=== PATIENT | male | born 1995 | race Caucasian/White ===

== ENCOUNTER 2025-07-22 09:07 | Emergency (ER) | payer OTHER, SELFPAY ==
[2025-07-22 09:08] VITALS: BP 154/98
--- NOTE | 2025-07-22 10:18 | ED.GENMED ---
History of Present Illness
General
Chief Complaint: Dizziness
Source: patient
Exam Limitations: none
Time Seen by Provider: 07/22/25 10:03
Nursing documentation reviewed up to this point in time: agreed with
History of Present Illness
History of Present Illness:
30-year-old male present to the emergency department today after being sent in by urgent care for elevated blood pressure in the 190s systolic. He claims that he woke up feeling very stressed. He claims that occasionally he will get panic attacks
does not take any medications for these. These typically will improve on their own after a few hours. He went to work and still felt 'off' and was sent to the urgent care. There his blood pressure was elevated and they sent him immediately to the
ER. The blood pressure is 190 systolic. He claims his symptoms have improved. Denies any specific chest pain shortness of breath nausea vomiting. He claims that panic attacks are somewhat frequent for him he does not follow-up with anybody
particularly for this.
Past History
Past History
ED Past Medical History: Psychiatric (ADD)
ED Past Surgical History: Other (Bilateral myringotomy tubes as child)
Social History
Tobacco: Smoker (vapor cigs)
Alcohol: Occasional
Drug: None
Personal: Single
Living: with family
Employment: Student
Family History
Family History: Other (Noncontributory)
Review of Systems
Review of Systems
Allergies reviewed?: Yes
All Other Systems: ROS reviewed and negative except as documented in HPI and ROS
Phy Exam
Physical Exam
Physical Exam:
GENERAL: Alert , in no apparent distress
EYE: pupils equal and reactive
NECK: Supple, no significant adenopathy.
ENT: o/p clr, mmm.
CARDIAC: Regular rate and rhythm .
LUNGS: Clear breath sounds bilaterally, no acute respiratory distress, no wheezes/rales/rhonchi
ABDOMEN: Soft, without focal tenderness, no r/g, no cvat
NEUROLOGICAL: Alert and oriented, no focal neuro deficits
SKIN: Warm and dry, skin intact.
MUSCULOSKELETAL: No edema, well perfused.
PSYCH: Normal and appropriate interaction.
Course
Orders/Labs/Results
Orders:
Orders
07/22/25 09:13
Electrocardiogram (*1) Urgent
Reason for Study: Chest Pain
EKG- Treatment ONCE
Vital Signs
Initial and Last Documented VS:
Initial Vital Signs
Temp Pulse Resp BP Pulse Ox
97.7 F 86 20 154/98 98
07/22/25 09:08 07/22/25 09:08 07/22/25 09:08 07/22/25 09:08 07/22/25 09:08
Last Documented Vital Signs
Temp Pulse Resp BP Pulse Ox
97.7 F 86 20 154/98 98
07/22/25 09:08 07/22/25 09:08 07/22/25 09:08 07/22/25 09:08 07/22/25 09:08
MDM/Problems Addressed
MDM/Problems Addressed:
30-year-old male presenting to the emergency department today with concerns of elevated blood pressure at urgent care. Has a self-described panic attack this morning was sent from work to the urgent care blood pressure in the 190s and sent
immediately to the ER. Here blood pressure in the 150s over 90s. He claims that he is feeling somewhat stressed on arrival but now feels much better. Asymptomatic at this point. Denies any specific palpitations chest pain shortness of breath
nausea vomiting. No history of heart disease or risk factors for this. It was offered to get some basic labs for further assessment here but concerning is asymptomatic and blood pressure is improving these would likely be very low yield. He
claims that he prefer to follow-up closely with his primary care doctor. He will check his blood pressure at home when he feels better. I felt this was reasonable. EKG did not show any emergent findings. Patient denies any thoughts of harming
himself or others. Patient stable for discharge at this time.
*Pulse Oximetry
SaO2: 98
Oxygen Mode of Delivery: Room air
Patient hypoxic: no (98)
*Critical Care Note
Total Time (30-74mins, 75-104mins- exclusive of procedures): Not Applicable
ED Attending Note
-
Portions of this chart may have been created with voice recognition software.� Occasional wrong word or��sound alike� substitutions may have occurred due to the inherent limitations of voice recognition software.
Discharge Plan
Departure
Patient Disposition: Home (Routine Discharge)
Date of Disposition: 07/22/25
Time of Disposition: 10:21
Patient with high blood pressure during this ER visit?: Yes
Condition: Good
Covid-19: Not Applicable
Discharge Problem:
High blood pressure
Instructions: BLOOD PRESSURE
Prescriptions:
No Action
methylphenidate HCl 36 MG tablet extended release 24hr
36 mg PO DAILY
melatonin-pyridoxine HCl (B6) 1 EACH tablet
1 ea PO HS
amoxicillin [Amoxil] 875 MG tablet
875 mg PO BID Qty: 10 0RF
docusate sodium [Colace] 100 MG capsule
100 mg PO BID Qty: 30 0RF
Stand Alone Forms: Return to Work
Activity Restrictions/Additional Instructions:
You came to the emergency department today with concerns of elevated blood pressure from urgent care. Here the blood pressure was improving. Please keep an eye on this at home and otherwise follow-up closely with your primary care doctor. Return
for any worsening, new or concerning symptoms.
Interventions
Interventions:
*Risk Screen - Suicide Last Done: 07/22/25 09:08
*General Assessment Last Done: 07/22/25 09:08
*Neglect/Abuse Screening Last Done: 07/22/25 09:08
Discharge Date and Time
Print Language: ETHIOPIAN
[2025-07-22 10:20] VITALS: BMI 31.5
[2025-07-22 10:25] VITALS: BP 137/81
== END 2025-07-22 10:41 | disposition home or self-care (01) ==
LOC: EMR 09:07
PROVIDERS: EMERGENCY PHYSICIAN Emergency Medicine; FAMILY PHYSICIAN Family Medicine
DX: R03.0 Elevated blood-pressure reading, without diagnosis of hypertension (principal); F17.290 Nicotine dependence, other tobacco product, uncomplicated
CPT/HCPCS: 99283; 93005

== ENCOUNTER 2025-08-11 09:41 | Emergency (ER) | payer OTHER, SELFPAY ==
[2025-08-11 09:43] VITALS: BP 157/106
--- NOTE | 2025-08-11 10:20 | ED.GENMED ---
History of Present Illness
General
Chief Complaint: Chest Pain
Time Seen by Provider: 08/11/25 10:18
Nursing documentation reviewed up to this point in time: agreed with
History of Present Illness
History of Present Illness:
30 year old male presents to the ED for reevaluation of chest pressure that has been occurring intermittently since he was seen in this department 07/22/2025. Patient reports that the feeling of chest pressure on his left chest has been present
persistently since yesterday afternoon. He sometimes feels hot and cold. He denies cough or cold symptoms. He reports feeling fatigued but states he has been sleeping well. He occasionally feels very weak and lightheaded as though he is going to
faint. He states that he went to work this morning and felt that his legs were very wobbly prompting him to speak with his employer. He was then referred to the ER for further evaluation. Patient had not seen his family physician since ER visit
on 822. He denies any recent travel. He denies any unexplained weight loss or weight gain. He has no significant prior medical history and does not take any prescription medications on a daily basis. He does admit to drinking 4-5 alcoholic
beverages daily. He denies dyspepsia. No significant family history of early CAD. He denies recent trauma. No preipheral edema. No prior personal history of VTE.
Past History
Past History
ED Past Medical History: Psychiatric (ADD)
ED Past Surgical History: Other (Bilateral myringotomy tubes as child)
Social History
Tobacco: Smoker (vapor cigs)
Alcohol: Occasional
Drug: None
Personal: Single
Living: with family
Employment: Student
Family History
Family History: Other (Noncontributory)
Review of Systems
Review of Systems
Allergies reviewed?: Yes
Phy Exam
Physical Exam
Physical Exam:
Patient is awake, alert, appears in no acute distress, head is normocephalic atraumatic, PERRL, EOMI mucous membranes moist, conjunctiva pink, heart regular rate and rhythm without murmurs or ectopy, lungs are clear to auscultation without wheezes
rales or rhonchi, no JVD, abdomen is soft and nontender on palpation, extremities without edema, GCS is 15
Scores
Heart Score for Chest Pain Patients
STEMI patient?: No
History: Slightly or Non-Suspicious
ECG: Normal
Age: </= 45 years
Risk Factors: No Risk Factors
Troponin: </= Normal Limit
Heart Score for Chest Pain Patients: 0
Heart Score Risk: 2.5% MACE over next 6 weeks
Course
Orders/Labs/Results
Orders:
Orders
08/11/25 09:46
ECG [Electrocardiogram (*1)] Urgent
Reason for Study: Chest Pain
EKG- Treatment ONCE
08/11/25 10:29
Pulse Ox/cont/shift [RESP] Stat
Quantity: 1
08/11/25 10:30
Cardiac Monitoring- Treatment ONCE
Famotidine [Pepcid] 20 mg IV NOW STA
CR Chest - 2 Views Urgent
Comment:
Reason For Exam: chest pain
08/11/25 11:00
Complete Blood Count/With Diff Urgent
Comprehensive Metabolic Panel Urgent
D-Dimer Urgent
Lipase Urgent
Magnesium Urgent
TSH Reflex To Free T4 Urgent
Troponin I Urgent
Abnormal Lab Results
08/11/25
11:00
MCH 31.1 H pg
(27.0-31.0)
Absolute Neuts (auto) 7.1 H 10^3/uL
(1.4-6.5)
Neutrophils % 77.3 H %
(42.2-75.2)
Lymphocytes % 16.8 L %
(20.5-51.1)
Glucose 101 H mg/dl
(70-99)
Calcium 10.5 H mg/dl
(8.4-10.2)
AST 91 H U/L
(17-59)
ALT 115 H U/L
(0-50)
Total Protein 8.8 H g/dl
(6.3-8.2)
Albumin 5.4 H g/dl
(3.5-5.0)
08/11/25 11:00
08/11/25 11:00
CBC reassuring
Vital Signs
Initial and Last Documented VS:
Initial Vital Signs
Temp Pulse Resp BP Pulse Ox
97.8 F 85 18 157/106 99
08/11/25 09:43 08/11/25 09:43 08/11/25 09:43 08/11/25 09:43 08/11/25 09:43
Last Documented Vital Signs
Temp Pulse Resp BP Pulse Ox
97.8 F 75 20 158/95 98
08/11/25 09:43 08/11/25 12:34 08/11/25 12:34 08/11/25 12:35 08/11/25 12:34
MDM/Problems Addressed
Differential Diagnosis Includes:
Differential diagnosis to consider but not limited to ACS, arrhythmia, electrolyte dyscrasia, anxiety, GERD, pulmonary embolism along with other etiologies considered
*Radiology
Radiology exam reviewed: preliminary read by ED provider (I independently viewed and interpreted two-view chest showing no acute process, normal cardiovascular silhouette. I reviewed radiology interpretation which is in agreement)
*Pulse Oximetry
SaO2: 99
Oxygen Mode of Delivery: Room air
Patient hypoxic: no
*EKG
Interpreted by ED Provider?: Yes (Independently viewed and interpreted twelve-lead EKG showing normal sinus rhythm, rate 73, normal axis, normal intervals, this is a normal tracing without evidence for acute ischemia, similar to prior from 07/22/2025)
*Stick Inserter Interpretation
Rate: normal (I independently viewed and interpreted rhythm strip showed normal sinus rhythm, no ectopy)
*Critical Care Note
Total Time (30-74mins, 75-104mins- exclusive of procedures): Not Applicable
Update Note
Update Note:
I reviewed prior ER visit notes from 07/22/2025-patient had limited evaluation as complaint at that time was elevated blood pressure with improvement in blood pressure on arrival to the ER. Will perform labs and chest x-ray today for further
assessment. Patient and significant other present at bedside agree with plan
1235: Patient feeling much better after Pepcid administration. I discussed with patient and significant other present at bedside very reassuring workup in the ER including negative D-dimer and negative troponin. I discussed with them possible
etiology of symptoms related to GERD and mild dehydration. Given persistence of symptoms, with the episodic nature which could relate to underlying arrhythmia (not seen on monitor strip here during observation in the emergency department) will
refer to cardiology for further evaluation. Patient agrees with plan for use of Pepcid. I also counseled patient on benefit of decreasing alcohol use. Patient and significant other present at bedside had no questions prior to discharge.
ED Attending Note
-
Portions of this chart may have been created with voice recognition software.� Occasional wrong word or��sound alike� substitutions may have occurred due to the inherent limitations of voice recognition software.
Discharge Plan
Departure
Patient Disposition: Home (Routine Discharge)
Date of Disposition: 08/11/25
Time of Disposition: 12:37
Patient with high blood pressure during this ER visit?: Yes
Discharge Problem:
Chest pain, Elevated LFTs
Instructions: Acid Reflux and GERD in Adults (DC), Chest Pain CBC Follow Up
Prescriptions:
No Action
methylphenidate HCl 36 MG tablet extended release 24hr
36 mg PO DAILY
melatonin-pyridoxine HCl (B6) 1 EACH tablet
1 ea PO HS
amoxicillin [Amoxil] 875 MG tablet
875 mg PO BID Qty: 10 0RF
docusate sodium [Colace] 100 MG capsule
100 mg PO BID Qty: 30 0RF
Referrals:
Kelly,Mony J., MD [Family Provider, Family Practice]
Fidel Murray MD [Active, Cardiology] - Next open appointment
Discharge Problem: Chest pain
Activity Restrictions/Additional Instructions:
Please use Pepcid as available [id number] daily until you are seen in follow-up with your primary care physician and cardiology. Encourage fluids. Return to the ER for any concerns
Interventions
Interventions:
*Risk Screen - Suicide Last Done: 08/11/25 09:43
*General Assessment Last Done: 08/11/25 09:43
ED- Cardiac Assessment Last Done: 08/11/25 11:14
Discharge Date and Time
Print Language: [id number]
[2025-08-11] MEDS: PEPCID 20 MG IV (11:01)
[2025-08-11 11:21] LABS: Hematocrit 49.0 % (39.0-52.0); Hemoglobin 17.8 g/dL (13.0-18.0); Mean Corp Hgb Conc. 36.3 g/dL (33.0-37.0); Mean Corpuscular Volume 85.5 fL (80.0-94.0); Nucleated Red Blood Cells % 0 % (-); Platelet Count 304 10^3/uL (130-400); Red Cell Dist. Width 12.7 % (11.5-14.5)
[2025-08-11 11:30] LABS: D-Dimer < 0.27 ug/mlFEU (0.00-0.50)
[2025-08-11 11:44] LABS: Troponin I < 0.012 ng/ml
[2025-08-11 11:51] LABS: ALT (SGPT) 115 U/L (0-50); AST (SGOT) 91 U/L (17-59); Albumin 5.4 g/dl (3.5-5.0); Alkaline Phosphatase 74 U/L (38-126); Blood Urea Nitrogen 16 mg/dl (9-20); Calcium 10.5 mg/dl (8.4-10.2); Carbon Dioxide 25 mmol/L (22-30); Chloride 102 mmol/L (98-107); Glucose 101 mg/dl (70-99); Lipase 85 U/L (23-300); Magnesium 2.2 mg/dl (1.6-2.3); Potassium 4.6 mmol/L (3.5-5.1); Sodium 137 mmol/L (135-145); Total Protein 8.8 g/dl (6.3-8.2); eGFR > 60.00
[2025-08-11 12:35] VITALS: BP 158/95
== END 2025-08-11 12:46 | disposition home or self-care (01) ==
LOC: EMR 09:41
PROVIDERS: EMERGENCY PHYSICIAN Emergency Medicine; FAMILY PHYSICIAN Family Medicine
DX: R07.9 Chest pain, unspecified (principal); R79.89 Other specified abnormal findings of blood chemistry; R03.0 Elevated blood-pressure reading, without diagnosis of hypertension; F17.210 Nicotine dependence, cigarettes, uncomplicated
CPT/HCPCS: 99284; 96374; 71046; 80053; 83690; 83735; 84443; 84484; 85025; 85379; 93005

== ENCOUNTER → 2025-10-06 10:42 | Outpatient (REF) | payer OTHER, SELFPAY | LOC: RCS 10:42 | PROVIDERS: ATTENDING PHYSICIAN Internal Medicine Cardiovascular Disease; FAMILY PHYSICIAN Family Medicine | DX: R07.89 Other chest pain (principal) | CPT/HCPCS: 93017 ==

== ENCOUNTER → 2025-11-14 12:54 | Outpatient (REF) | payer OTHER, SELFPAY | LOC: RCS 12:54 | PROVIDERS: ATTENDING PHYSICIAN Internal Medicine Cardiovascular Disease; FAMILY PHYSICIAN Family Medicine | DX: R07.89 Other chest pain (principal) | CPT/HCPCS: 93306 ==